=== PATIENT | male | born 1980 ===

== ENCOUNTER 2018-06-29 14:03 | Emergency (ER) | payer OTHER ==
[2018-06-29 14:19] VITALS: BP 125/78
--- NOTE | 2018-06-29 14:22 | EDPHY ---
H & P Stated Complaint: high blood pressure Time Seen by Provider: 06/29/18 14:15 HPI/ROS: CHIEF COMPLAINT: Hypertension HISTORY OF PRESENT ILLNESS: The patient is a 38-year-old man with a history of hypertension. He was seen at the dentist office today for a dental lenore in his left upper maxilla. They had planned to pull his tooth but found that his blood pressure was 200 over 120. Instead they gave him antibiotics and [place] and sent him to the [facility] office. There he continued to have hypertension but no symptoms. No headache. No chest pain. No shortness of breath. He does take hydrochlorothiazide and lisinopril at home. He states that he has been taking his medications. The the clinic decided to send him to the emergency department. He tells me that he feels fine and is asymptomatic. Severity: None Modifying factors: None REVIEW OF SYSTEMS: Constitutional: denies: chills, fever, recent illness, recent injury EENTM: denies: blurred vision, double vision, nose congestion Respiratory: denies: cough, shortness of breath Cardiac: denies: chest pain, irregular heart rate, lightheadedness, palpitations Gastrointestinal/Abdominal: denies: abdominal pain, diarrhea, nausea, vomiting, blood streaked stools Genitourinary: denies: dysuria, frequency, hematuria, pain Musculoskeletal: denies: joint pain, muscle pain Skin: denies: lesions, rash, jaundice, bruising Neurological: denies: headache, numbness, paresthesia, tingling, dizziness, weakness Hematologic/Lymphatic: denies: blood clots, easy bleeding, easy bruising Immunologic/allergic: denies: HIV/AIDS, transplant 10 systems reviewed and negative except as noted EXAM: GENERAL: Well-appearing, well-nourished and in no acute distress. HEAD: Atraumatic, normocephalic. EYES: Pupils equal round and reactive to light, extraocular movements intact, sclera anicteric, conjunctiva are normal. ENT: Poor dentition with obvious carried left upper maxilla. TMs normal, nares patent, oropharynx clear without exudates. Moist mucous membranes. NECK: Normal range of motion, supple without lymphadenopathy or JVD. LUNGS: Breath sounds clear to auscultation bilaterally and equal. No wheezes rales or rhonchi. HEART: Regular rate and rhythm without murmurs, rubs or gallops. ABDOMEN: Soft, nontender, normoactive bowel sounds. No guarding, no rebound. No masses appreciated. BACK: No CVA tenderness, no spinal tenderness, step-offs or deformities EXTREMITIES: Normal range of motion, no pitting or edema. No clubbing or cyanosis. NEUROLOGICAL: Cranial nerves II through XII grossly intact. Normal speech, normal gait. 5/5 strength, normal movement in all extremities, normal sensation , normal reflexes PSYCH: Normal mood, normal affect. SKIN: Warm, dry, normal turgor, no visible rashes or lesions. Source: Patient - Personal History Current Tetanus/Diphtheria Vaccine: Yes Current Tetanus Diphtheria and Acellular Pertussis (TDAP): Yes - Medical/Surgical History Hx Asthma: No Hx Chronic Respiratory Disease: No Hx Diabetes: No Hx Cardiac Disease: Yes Hx Renal Disease: No Hx Cirrhosis: No Hx Alcoholism: No Hx HIV/AIDS: No Hx Splenectomy or Spleen Trauma: No Other PMH: highg blod pressure - Social History Smoking Status: Never smoked Alcohol Use: None Constitutional: Initial Vital Signs Temperature (C) 36.5 C 06/29/18 14:07 Heart Rate 78 06/29/18 14:07 Respiratory Rate 16 06/29/18 14:07 Blood Pressure 191/113 H 06/29/18 14:07 O2 Sat (%) 94 06/29/18 14:07 O2 Delivery Mode Room Air Allergies/Adverse Reactions: No Known Allergies Allergy (Unverified 08/10/12 23:00) Home Medications: Medication Instructions Recorded Miscellaneous Medical Supply [NO 1 ea MIS AD 08/10/12 HOME MEDS] Lisinopril 06/29/18 Medical Decision Making ED Course/Re-evaluation: Patient has an obvious dental trisha, no obvious abscess seen. He has been started today on antibiotics and [place]. The [place] was controlling his pain in his blood pressure in the room now is 170/80. We discussed blood pressure management. I encouraged him to keep track of his blood pressure the next several weeks and follow up with his primary doctor for adjustment of his medications. I also discussed return to the ER if he develops headache, chest pain, shortness of breath etc. The patient understands and agrees with this plan. He tells me that he feels fine. He is going to return to the office for his antibiotic prescription. Differential Diagnosis: Partial list of the Differential diagnosis considered include but were not limited to; dental pain, infection, anxiety, hypertension and although unlikely based on the history and physical exam, I also considered hypertensive emergency, acute coronary disease. I discussed these differential diagnoses and the plan with the patient as well as the usual and expected course. The patient understands that the diagnosis is provisional and that in medicine we are not always correct and that further workup is often warranted. Usual and customary warnings were given. All of the patient's questions were answered. The patient was instructed to return to the emergency department should the symptoms at all worsen or return, otherwise to followup with the physician as we discussed. Departure - Departure Disposition: Home, Routine, Self-Care Clinical Impression: Dental caries Hypertension Qualifiers: Hypertension type: unspecified Qualified Code(s): I10 - Essential (primary) hypertension Condition: Good Instructions: Hypertension (ED), Toothache (ED) Referrals: NONE *PRIMARY CARE P,. [Primary Care Provider] - As per Instructions [facility]. [Clinic] - As per Instructions
== END 2018-06-29 14:20 | disposition home or self-care (01) ==
DX: I10 Essential (primary) hypertension (principal); K08.9 Disorder of teeth and supporting structures, unspecified